=== PATIENT | male | born 1945 | race Caucasian/White ===

== ENCOUNTER 2023-08-24 11:15 | Outpatient (CLI) | payer OTHER, SELFPAY ==
--- NOTE | 2023-08-24 11:15 | USCV_ITS ---
FamKen Age: 78 Gender: M : 1945 Exam Date: 08/24/2023 10:30 Ordering Phys: Jez Barbosa MD Technologist: [employer] [place] [facility] [place]: dysphagia Risk Factors: Previous Vascular Surgery: Right Brachial BP: / Left Brachial BP: / Right Left Velocity (cm/s) Spectral Plaque Velocity (cm/s) Spectral Plaque Syst/Diast Broadening Syst/Diast Broadening 67.10/ 19.70 Prox CCA 71.60 / 27.60 69.70/ 25.70 Mid CCA 79.90 / 26.00 72.80/ 21.60 Distal CCA 79.00 / 29.30 47.90/ 20.50 Prox ICA 40.20 / 15.40 47.90/ 22.80 Mid ICA 34.00 / 14.50 54.80/ 19.30 Distal ICA 51.10 / 24.00 80.10 ECA 35.90 0.80 ICA/CCA 0.60 Antegrade Vertebral Antegrade 31.20/ 11.50 cm/s 83.30/ 27.40 cm/s Bi Subclavian Bi 55.10 75.50 CONCLUSIONS Right ICA stenosis <50%. Mild atheromatous plaque right carotid bulb/ICA. Left ICA stenosis <50%. Moderate atheromatous plaque left carotid bulb/ICA. Intimal thickening in the common carotid arteries and internal carotid arteries bilaterally. Normal antegrade Doppler flow noted in the right vertebral artery. Normal antegrade Doppler flow noted in the left vertebral artery. Arvin Slaughter MD (Electronically Signed) Final Date: 24 August 2023 11:22 S
== END 2023-08-24 11:16 | disposition home or self-care (01) ==
PROVIDERS: PCP Family Medicine; Visit Provider Psychiatry & Neurology Neurology
DX: R13.10 Dysphagia, unspecified (principal); R13.0 Aphagia; R47.89 Other speech disturbances; I65.23 Occlusion and stenosis of bilateral carotid arteries
CPT/HCPCS: 93880